=== PATIENT | male | born 1950 | race Caucasian/White ===

== ENCOUNTER → 2020-05-17 08:13 | Outpatient (BNVA) | payer OTHER, SELFPAY | PROVIDERS: PCP Family Medicine; Visit Provider Student in an Organized Health Care Education/Training Program | DX: M70.21 Olecranon bursitis, right elbow (principal) | CPT/HCPCS: 99212 ==

== ENCOUNTER 2021-05-23 20:50 | Inpatient (IN) | payer OTHER, SELFPAY ==
--- NOTE | 2021-05-23 21:37 | PC.NURSE ---
Pt is a 71 year old male who presents to S1 from [facility] ED at approx 2120 who is a section 12b. Pt is covid - Utox- Pt is irritable and did not want to talk with staff. Pt was able to walk independently to his bed and lay down upon arrival. Pt is diagnosed with schizoaffective disorder. Pt integumentary system is fragile, with no open areas. Pt had a medication restraint at [facility] approx on 05/18/21. Pt is refusing to engage with staff at the moment. Pt is guarded. Pt has a psychiatrist for outpt services. Per chart review, pt contacted himself explaining that the was supposed to see Judge Padron but things had went sideways. Pt reports mood as fine. Pt has limited impulse, insight, judgment. Per [facility] documentation pt has hx of attempting to burn off a tattoo during one of his episodes. Pt has a hx of substance use-cocaine and THC. Provider called for orders and notified of admission. Start treatment plan and monitor for safety.
[2021-05-23] MEDS: hydrOXYzine HCL 25 MG TABLET PO (23:13)
[2021-05-24 07:47] LABS: Estimated Average Glucose 97 mg/dL
[2021-05-24 07:50] LABS: Cholesterol 181 mg/dL; HDL Cholesterol 35 mg/dL; LDL Cholesterol Calculated 128 mg/dl; Magnesium 2.1 mg/dL (1.6-2.6); Triglycerides 93 mg/dL
[2021-05-24 08:00] VITALS: BP 132/72; PULSE 112; RESP 16; TEMP 36.6; O2SAT 97
[2021-05-24 08:11] LABS: Free T4 (Free Thyroxine) 1.09 ng/dL (0.71-1.85); Thyroid Stimulating Hormone 0.99 uIU/mL (0.32-4.0)
--- NOTE | 2021-05-24 08:45 | P.CONHOSP_ITS ---
History of Present Illness Data of Consult Service Date: 05/24/21 Primary Care Provider: Jennifer Olivo MD HPI 71 year old man with history of schizophrenia transferred from [facility] admitted to [facility] for behavioral health. At this time his vital signs are stable. No acute complaints at this time. Review of Systems Verdana 4l Review of Systems: Verdana 4d Verdana 4d Denies any recent fever chills or decrease in appetite respiratory denies any shortness of breath coverage production cardiovascular denies chest pain gastrointestinal denies any dysphagia abdominal pain nausea vomiting or diarrhea genitourinarygenitourinary denies any dysuria frequency or hematuria musculoskeletal denies any joint pain or swelling neuropsych denies any weakness or seizures all other systems reviewed are negative [facility] Medical History (Updated 05/24/21 @ 14:57 by Taurus Estevez MD) Schizophrenia Social History (Updated 05/17/20 @ 08:32 by Amauri Crowell LPN) Household Members: Unknown / Unable to assess Household Members Other:: Patient refused to answer. Housing: Unknown / Unable to assess Do you presently have visiting nurse or other home services: No Unable to assess alcohol history related to: Refusing to respond Alcohol intake: never Patient Tobacco Use Status: Refuse Tobacco use screen Cigarettes Per Day: 10 Use of substances other than those prescribed or required for medical reasons: Refusing to respond Currently Displaying Signs/Symptoms of Drug Intoxication Withdrawal: No Advance Directives: No Advance Directives Information Provided: No Advance Directives on File: No Do you have thoughts of harming others: None Do you have a plan to hurt others: No Plan Recently lost weight without trying: Unsure Eating poorly because of decreased appetite: No Nutrition Risks: No Nutritional Risk Meds Allergies Allergy/AdvReac Type Severity Reaction Status Date / Time No Known Allergies Allergy Verified 05/17/20 08:28 Active Medications: Current Medications Acetaminophen (Acetaminophen 325 Mg Tablet) 650 mg PO Q6H PRN PRN Reason: Headache/Pain Mild Scale (1-3) Al Hydroxide/Mg Hydroxide (Magnesium Hydrox/Alum Hydrox 30 Ml Oral.Susp) 30 ml PO Q6H PRN PRN Reason: Heartburn/Nausea Albuterol Sulfate (Albuterol Sulfate 90 Mcg 8 Gm Inhaler) 2 puff INHALE Q6H PRN PRN Reason: breathing Aspirin (Aspirin Enteric Coated 81 Mg Tablet.Dr) 81 mg PO DAILY [place] Benztropine Mesylate (Benztropine Mesylate 1 Mg Tablet) 1 mg PO BID [facility] Cyanocobalamin (Cyanocobalamin (Vitamin B-12) 1,000 Mcg Tablet) 1,000 mcg PO DAILY [facility] Divalproex Sodium (Divalproex Sodium Er 500 Mg Tab.Er.24h) 1,500 mg PO DAILY [facility] Folic Acid (Folic Acid 1 Mg Tablet) 1 mg PO DAILY [facility] Haloperidol (Haloperidol 5 Mg Tablet) 7.5 mg PO BEDTIME [facility] Hydroxyzine HCl (Hydroxyzine Hcl 25 Mg Tablet) 25 mg PO DAILY PRN PRN Reason: Anxiety Last Admin: 05/23/21 23:13 Dose: 25 mg Documented by: Lactic Acid (Ammonium Lactate 12 % Lotion 226 Gm Bottle) 1 appl TOPICAL BID [facility] Magnesium Hydroxide (Milk Of Magnesia 30 Ml Oral.Susp) 30 ml PO DAILY PRN PRN Reason: Constipation Melatonin (Melatonin 3 Mg Tablet) 9 mg PO BEDTIME [place] Trazodone HCl (Trazodone Hcl 25 Mg Halftab) 25 mg PO DAILY [facility] Vitamin D (Cholecalciferol (Vitamin D3) 25 Mcg Tablet) 50 mcg PO DAILY [facility] Home Medications Medication Instructions Recorded Confirmed Last Taken Type albuterol sulfate 2 puff 05/17/20 05/23/21 Unknown History 90 mcg/actuation INHALATION Q6H PRN aerosol inhaler ammonium lactate 1 appl TOPICAL 05/17/20 05/23/21 Unknown History 12 % lotion BID aspirin 81 mg 81 mg PO DAILY 05/17/20 05/23/21 Unknown History tablet,delayed release (Enteric Coated Aspirin) benztropine 1 mg 1 mg PO BID 05/17/20 05/23/21 Unknown History tablet divalproex 500 mg 500 mg PO TID 05/17/20 05/23/21 Unknown History tablet,delayed release haloperidol 5 mg 5 mg PO BEDTIME 05/17/20 05/23/21 Unknown History tablet trazodone 50 mg 25 mg PO DAILY 05/17/20 05/23/21 Unknown History tablet Physical Exam Verdana 4l Vital Signs and Narrative: Verdana 4d Verdana 4d Appearing in no acute distress head is normocephalic atraumatic eyes pupils are PERRLA sclera is anicteric mouth throat mucous membranes are intact and moist neck is supple no lymphadenopathy, no JVD noted lung sounds are clear to auscultationauscultation heart regular rate rhythm, clear S1, S2 positive bowel sounds, abdomen is soft, nontender neuro patient is alert x3, no focal deficits Cranial nerves 1-12 grossly intact without focal deficits Results Labs Labs: Laboratory Results - last 24 hr 05/24/21 05/24/21 07:15 07:15 Estimat Average Glucose 97 Hemoglobin A1c % 5.0 Magnesium 2.1 Triglycerides 93 Cholesterol 181 LDL Cholesterol, Calc 128 HDL Cholesterol 35 TSH 0.99 Free T4 1.09 Assessment and Plan (1) Schizophrenia: Status: Acute 71-year-old man admitted to geriatric psych for behavior Health. It does not appear that he has any acute or chronic medical problems other than mental health. Schizophrenia Management as per psychiatric team No noted acute medical problems, anything should arise please contact medical team.
[2021-05-24] MEDS: Aspirin Enteric Coated 81 MG TABLET.DR PO (10:25)
[2021-05-24] MEDS: Benztropine Mesylate 1 MG TABLET PO ×2 (10:25→20:16)
[2021-05-24] MEDS: Cholecalciferol (Vitamin D3) 25 MCG TABLET 50 MCG PO (10:25)
[2021-05-24] MEDS: Cyanocobalamin (Vitamin B-12) 1,000 MCG TABLET 1000 MCG PO (10:25)
[2021-05-24] MEDS: Divalproex Sodium ER 500 MG TAB.ER.24H 1500 MG PO (10:26)
[2021-05-24] MEDS: traZODone HCL 25 MG HALFTAB PO (10:27)
[2021-05-24] MEDS: Folic Acid 1 MG TABLET PO (10:27)
--- NOTE | 2021-05-24 13:06 | PC.NURSE ---
Patient refused to cooperate for the admission process. He wants to go back where he was before.
--- NOTE | 2021-05-24 14:43 | HO.PSYADMNOT ---
HPI Date of Service: 05/24/21 Chief Complaint: schizoaffective disorder,cannabis use,stimulant Sources of Information: patient interviewed, chart reviewed and crisis/core team assessment reviewed HPI Subjective Notes: Section 12B Medical Problems Affecting Mental Status: No Narrative: 71-year-old male transferred from [facility] in context of paranoia, delusions he should be on the [employer] show. There was also mention of suicidal ideation. Irritable and paranoid since admission. Declined to engage with admission process or complete paperwork. Admitted on Section 12 B. Today patient reports wanting discharge. Is illogical during interview at times and was talking about the teenage mutant wili turtles. No evidence of depression. Denies SI. Denies HI. Does appear internally preoccupied. Reports that his sister had a reaction and taunted him into coming to the hospital. Could not explain why he drove himself to the hospital but blames his sister. Upon trying the interview more are asked about background history, became irritable and guarded and was talking about being tested to many times. Regarding treatment, reports his psychiatrist is Dr. Audra blanc in [facility]. Regarding medications, reports that he gets what he needs but did not want to elaborate. Reports medications are being ordered here. When asking about family and supports. Was referring to [facility], editorial writer believes stating there [place] and that he could get dental work done there. Then reports that he tried to defend his rights to have dental work which led to letters been written. This was largely illogical and difficult to follow. When asked about his , became irritable and used obscenities to describe her. Stated he had 1 daughter and then stated he was unsure if he had grand children and she might be in [place]. Denies having any substance issues. Did endorse smoking cigarettes, but denied any cravings and declined nicotine replacement therapy. Past Psychiatric History: see above. Very difficult to get clear history, given patient's irritability, level of paranoia and illogical. there is reference to cocaine misuse in the past and history of attempting to burn off his tattoo in the past. Medical Evaluation Reviewed: Yes See hospitalist evaluation regarding medical needs etc. [facility] Medical History (Updated 05/24/21 @ 14:57 by Taurus Estevez MD) Schizophrenia Social History: see above. Very difficult to get clear history. Reports that he lives with the sister. Unclear if he had been at the [facility] or get services there. Unclear level of supports etc. Substance History: As per transfer paperwork history of cocaine Misuse. Diagnostics Vital Signs (24Hr): Vital Signs - 24 hr 05/24/21 08:00 Temperature 97.8 F Pulse Rate 112 H Respiratory Rate 16 Blood Pressure 132/72 Pulse Oximetry 97 Labs Labs: Laboratory Results - last 48 hr 05/24/21 05/24/21 07:15 07:15 Estimat Average Glucose 97 Hemoglobin A1c % 5.0 Magnesium 2.1 Triglycerides 93 Cholesterol 181 LDL Cholesterol, Calc 128 HDL Cholesterol 35 TSH 0.99 Free T4 1.09 Meds/Allergies Meds Home Medications Acetaminophen (Acetaminophen 325 Mg Tablet) 650 mg PO Q6H PRN PRN Reason: Headache/Pain Mild Scale (1-3) Al Hydroxide/Mg Hydroxide (Magnesium Hydrox/Alum Hydrox 30 Ml Oral.Susp) 30 ml PO Q6H PRN PRN Reason: Heartburn/Nausea Albuterol Sulfate (Albuterol Sulfate 90 Mcg 8 Gm Inhaler) 2 puff INHALE Q6H PRN PRN Reason: breathing Aspirin (Aspirin Enteric Coated 81 Mg Tablet.) 81 mg PO DAILY [facility] Last Admin: 05/24/21 10:25 Dose: 81 mg Documented by: Benztropine Mesylate (Benztropine Mesylate 1 Mg Tablet) 1 mg PO BID [facility] Last Admin: 05/24/21 10:25 Dose: 1 mg Documented by: Cyanocobalamin (Cyanocobalamin (Vitamin B-12) 1,000 Mcg Tablet) 1,000 mcg PO DAILY [facility] Last Admin: 05/24/21 10:25 Dose: 1,000 mcg Documented by: Divalproex Sodium (Divalproex Sodium Er 500 Mg Tab.Er.24h) 1,500 mg PO DAILY [facility] Last Admin: 05/24/21 10:26 Dose: 1,500 mg Documented by: Folic Acid (Folic Acid 1 Mg Tablet) 1 mg PO DAILY [facility] Last Admin: 05/24/21 10:27 Dose: 1 mg Documented by: Haloperidol (Haloperidol 5 Mg Tablet) 7.5 mg PO BEDTIME [facility] Hydroxyzine HCl (Hydroxyzine Hcl 25 Mg Tablet) 25 mg PO DAILY PRN PRN Reason: Anxiety Last Admin: 05/23/21 23:13 Dose: 25 mg Documented by: Lactic Acid (Ammonium Lactate 12 % Lotion 226 Gm Bottle) 1 appl TOPICAL BID [facility] Last Admin: 05/24/21 10:27 Dose: Not Given Documented by: Magnesium Hydroxide (Milk Of Magnesia 30 Ml Oral.Susp) 30 ml PO DAILY PRN PRN Reason: Constipation Melatonin (Melatonin 3 Mg Tablet) 9 mg PO BEDTIME [facility] Trazodone HCl (Trazodone Hcl 25 Mg Halftab) 25 mg PO DAILY [facility] Last Admin: 05/24/21 10:27 Dose: 25 mg Documented by: Vitamin D (Cholecalciferol (Vitamin D3) 25 Mcg Tablet) 50 mcg PO DAILY [facility] Last Admin: 05/24/21 10:25 Dose: 50 mcg Documented by: Allergies Allergies Allergy/AdvReac Type Severity Reaction Status Date / Time No Known Allergies Allergy Verified 05/17/20 08:28 Mental Status Exam Mental Status Exam Narrative: Seen in day room. Casually dressed. Hygiene okay. no overt cognitive issues noted. Aware he was at [facility] and came to [place] yesterday. Internally preoccupied. Guarded. Irritable. Is logical with loosening of thought form. denied depression. Denied current SI. Denied HI. Does appear paranoid. Insight and judgment limited Assessment & Plan Assessment & Plan (1) Schizophrenia: Status: Acute Code(s): F20.9 - Schizophrenia, unspecified Assessment and Plan: Presents with paranoia, thought disorder and internal preoccupation consistent with schizophrenia. There is reference to SI, but no evidence of same currently. Limited engagement with treatment planning with irritability and being quite guarded. Unclear regarding recent treatments and adherence with medications. Will continue with current medication plan as per transfer records [facility]: Depakote 1500, Haldol 7.5, Cogentin and trazodone. Patient educated on: other ( Attempt to discuss treatment planning and rationale for same.) Informed Consent: further education needed Reason for continued inpatient stay Substantial Risk for: harm to self and rapid decompensation
[2021-05-24 18:00] VITALS: BP 134/66; PULSE 89; RESP 20; TEMP 36.4; O2SAT 99
[2021-05-24] MEDS: Melatonin 3 MG TABLET 9 MG PO (20:16)
[2021-05-24] MEDS: HaloperidoL 5 MG TABLET 7.5 MG PO (20:17)
[2021-05-24] MEDS: Ammonium Lactate 12 % Lotion 226 GM BOTTLE 1 APPL TOPICAL (23:16)
[2021-05-25 02:44] VITALS: BMI 25.7
[2021-05-25 08:00] VITALS: BP 114/70; PULSE 89; TEMP 36; O2SAT 100
[2021-05-25] MEDS: Folic Acid 1 MG TABLET PO (08:17)
[2021-05-25] MEDS: Divalproex Sodium ER 500 MG TAB.ER.24H 1500 MG PO (08:17)
[2021-05-25] MEDS: Benztropine Mesylate 1 MG TABLET PO ×2 (08:17→21:17)
[2021-05-25] MEDS: traZODone HCL 25 MG HALFTAB PO (08:17)
[2021-05-25] MEDS: Cyanocobalamin (Vitamin B-12) 1,000 MCG TABLET 1000 MCG PO (08:17)
[2021-05-25] MEDS: Aspirin Enteric Coated 81 MG TABLET.DR PO (08:17)
[2021-05-25] MEDS: Cholecalciferol (Vitamin D3) 25 MCG TABLET 50 MCG PO (08:17)
[2021-05-25 08:19] LABS: Valproate 51.8 mcg/mL (50.0-100.0)
--- NOTE | 2021-05-25 10:46 | P.PNPSI_ITS ---
Subjective Subjective Date of Service: 05/25/21 Reason For Visit: schizoaffective disorder Subjective Notes: Section 12B Interim History: Continues to remain irritable. Did however complete some admission paperwork yesterday. Still reports not wanting to be in the hospital and willing discharge. Unable to clearly articulate admission circumstances again today. Reported that he was feeling manic, but unable to describe same. Frustrated regarding sister. Frustrated about being in the hospital using obscenities when talking about this. Sleep has been okay. Denied medication concerns. Is medication adherent. Does remain intrusive. Also appears inter nedra preoccupied at times Medication Compliance: Yes Side effects from medications: No Attending Groups: Intermittent Review of Systems Acute medical concerns: No Review of Systems Review of Systems unremarkable Mental Status Exam Mental Status Exam Narrative: Seen in day room. Casually dressed. Hygiene okay. no overt cognitive issues noted. Internally preoccupied. Guarded. Irritable. Is logical with loosening of thought form. denied depression. Denied current SI. Denied HI. Does appear paranoid. Insight and judgment limited Diagnostics Vital Signs (24Hr): Vital Signs - 24 hr 05/24/21 18:00 05/25/21 08:00 Temperature 97.6 F 96.8 F Pulse Rate 89 89 Respiratory Rate 20 Blood Pressure 134/66 114/70 Pulse Oximetry 99 100 BMI result Body Mass Index 25.7 Labs Labs: Laboratory Results - last 48 hr 05/24/21 05/24/21 05/25/21 07:15 07:15 07:40 Estimat Average Glucose 97 Hemoglobin A1c % 5.0 Magnesium 2.1 Triglycerides 93 Cholesterol 181 LDL Cholesterol, Calc 128 HDL Cholesterol 35 TSH 0.99 Free T4 1.09 Valproic Acid 51.8 Medications Medications Current Medications Acetaminophen (Acetaminophen 325 Mg Tablet) 650 mg PO Q6H PRN PRN Reason: Headache/Pain Mild Scale (1-3) Al Hydroxide/Mg Hydroxide (Magnesium Hydrox/Alum Hydrox 30 Ml Oral.Susp) 30 ml PO Q6H PRN PRN Reason: Heartburn/Nausea Albuterol Sulfate (Albuterol Sulfate 90 Mcg 8 Gm Inhaler) 2 puff INHALE Q6H PRN PRN Reason: breathing Aspirin (Aspirin Enteric Coated 81 Mg Tablet.) 81 mg PO DAILY [place] Last Admin: 05/25/21 08:17 Dose: 81 mg Documented by: Benztropine Mesylate (Benztropine Mesylate 1 Mg Tablet) 1 mg PO BID [facility] Last Admin: 05/25/21 08:17 Dose: 1 mg Documented by: Cyanocobalamin (Cyanocobalamin (Vitamin B-12) 1,000 Mcg Tablet) 1,000 mcg PO DAILY [facility] Last Admin: 05/25/21 08:17 Dose: 1,000 mcg Documented by: Divalproex Sodium (Divalproex Sodium Er 500 Mg Tab.Er.24h) 1,500 mg PO DAILY [facility] Last Admin: 05/25/21 08:17 Dose: 1,500 mg Documented by: Folic Acid (Folic Acid 1 Mg Tablet) 1 mg PO DAILY [facility] Last Admin: 05/25/21 08:17 Dose: 1 mg Documented by: Haloperidol (Haloperidol 5 Mg Tablet) 7.5 mg PO BEDTIME [facility] Last Admin: 05/24/21 20:17 Dose: 7.5 mg Documented by: Hydroxyzine HCl (Hydroxyzine Hcl 25 Mg Tablet) 25 mg PO DAILY PRN PRN Reason: Anxiety Last Admin: 05/23/21 23:13 Dose: 25 mg Documented by: Lactic Acid (Ammonium Lactate 12 % Lotion 226 Gm Bottle) 1 appl TOPICAL BID [facility] Last Admin: 05/25/21 10:06 Dose: Not Given Documented by: Magnesium Hydroxide (Milk Of Magnesia 30 Ml Oral.Susp) 30 ml PO DAILY PRN PRN Reason: Constipation Melatonin (Melatonin 3 Mg Tablet) 9 mg PO BEDTIME [facility] Last Admin: 05/24/21 20:16 Dose: 9 mg Documented by: Trazodone HCl (Trazodone Hcl 25 Mg Halftab) 25 mg PO DAILY [facility] Last Admin: 05/25/21 08:17 Dose: 25 mg Documented by: Vitamin D (Cholecalciferol (Vitamin D3) 25 Mcg Tablet) 50 mcg PO DAILY [facility] Last Admin: 05/25/21 08:17 Dose: 50 mcg Documented by: Allergies Allergies Allergy/AdvReac Type Severity Reaction Status Date / Time No Known Allergies Allergy Verified 05/17/20 08:28 Assessment & Plan Assessment & Plan (1) Schizophrenia: Status: Acute Code(s): F20.9 - Schizophrenia, unspecified Assessment and Plan: ?Presents with paranoia, thought disorder and internal preoccupation consistent with schizophrenia.? There is reference to SI, but no evidence of same currently.? Limited engagement with treatment planning with irritability and being quite guarded. Unclear regarding recent treatments and adherence with medications.? Will continue with current medication plan as per transfer records [facility]: ? Depakote 1500, Haldol 7.5, Cogentin and trazodone. Assessment and Plan: 71-year-old man admitted to geriatric psych for behavior Health. It does not appear that he has any acute or chronic medical problems other than mental health. Schizophrenia Management as per psychiatric team No noted acute medical problems, anything should arise please contact medical team. I spent minutes with the patient and/or on the patient floor today, greater than?50% of which was spent counseling/coordinating care. Reason for contiued inpatient stay Substantial Risk for: inability to function and rapid decompensation
[2021-05-25] MEDS: Ammonium Lactate 12 % Lotion 226 GM BOTTLE 1 APPL TOPICAL (21:17)
[2021-05-25] MEDS: HaloperidoL 5 MG TABLET 7.5 MG PO (21:18)
[2021-05-25] MEDS: Melatonin 3 MG TABLET 9 MG PO (21:18)
[2021-05-25 22:11] VITALS: BP 125/63; PULSE 83; RESP 18; TEMP 37.2; O2SAT 100
[2021-05-25] MEDS: hydrOXYzine HCL 25 MG TABLET PO (23:43)
[2021-05-26 06:00] VITALS: BP 128/65; PULSE 83; RESP 14; TEMP 36.4; O2SAT 99
[2021-05-26] MEDS: Cholecalciferol (Vitamin D3) 25 MCG TABLET 50 MCG PO (08:32)
[2021-05-26] MEDS: Folic Acid 1 MG TABLET PO (08:33)
[2021-05-26] MEDS: Aspirin Enteric Coated 81 MG TABLET.DR PO (08:33)
[2021-05-26] MEDS: Divalproex Sodium ER 500 MG TAB.ER.24H 1500 MG PO (08:33)
[2021-05-26] MEDS: traZODone HCL 25 MG HALFTAB PO (08:33)
[2021-05-26] MEDS: Benztropine Mesylate 1 MG TABLET PO ×2 (08:33→21:02)
[2021-05-26] MEDS: Cyanocobalamin (Vitamin B-12) 1,000 MCG TABLET 1000 MCG PO (08:33)
[2021-05-26] MEDS: Ammonium Lactate 12 % Lotion 226 GM BOTTLE 1 APPL TOPICAL ×2 (09:14→16:10)
[2021-05-26 10:26] LABS: Folate 15.9 ng/mL (> or = 4.0); Vitamin B12 967 pg/mL (200-900)
--- NOTE | 2021-05-26 15:09 | P.PNPSI_ITS ---
Subjective Subjective Date of Service: 05/26/21 Reason For Visit: schizoaffective disorder Subjective Notes: Conditional Voluntary Interim History: The nursing staff reported that the patient had a poor night sleep, he was irritable at times with poor appetite. On interview the patient was pleasant and cooperative he admitted poor sleep and he stated that before olanzapine used to work for him. He sign a conditional voluntary even though that he was very paranoid with staff Mental Status Exam Mental Status Exam Patient Appearance: Well Grooomed Patient Orientation: Person Level of Consciousness: Awake Patient Behavior: Cooperative Mood Description: Depressed Affect Description: Constricted Ability to Follow Directions: Good Speech Pattern: Clear Hallucinations: None Delusions: Not Present Thought Process: Linear Thought Content: positive for Linear and positive for Poverty of Content Judgement: Fair Diagnostics Vital Signs (24Hr): Vital Signs - 24 hr 05/25/21 22:11 05/26/21 06:00 Temperature 98.9 F 97.5 F Pulse Rate 83 83 Respiratory Rate 18 14 Blood Pressure 125/63 128/65 Pulse Oximetry 100 99 BMI result Body Mass Index 25.7 Labs Labs: Laboratory Results - last 48 hr 05/24/21 05/25/21 07:15 07:40 Vitamin B12 967 H Folate 15.9 Valproic Acid 51.8 Medications Medications Current Medications Acetaminophen (Acetaminophen 325 Mg Tablet) 650 mg PO Q6H PRN PRN Reason: Headache/Pain Mild Scale (1-3) Al Hydroxide/Mg Hydroxide (Magnesium Hydrox/Alum Hydrox 30 Ml Oral.Susp) 30 ml PO Q6H PRN PRN Reason: Heartburn/Nausea Albuterol Sulfate (Albuterol Sulfate 90 Mcg 8 Gm Inhaler) 2 puff INHALE Q6H PRN PRN Reason: breathing Aspirin (Aspirin Enteric Coated 81 Mg Tablet.) 81 mg PO DAILY [facility] Last Admin: 05/26/21 08:33 Dose: 81 mg Documented by: Benztropine Mesylate (Benztropine Mesylate 1 Mg Tablet) 1 mg PO BID [facility] Last Admin: 05/26/21 08:33 Dose: 1 mg Documented by: Cyanocobalamin (Cyanocobalamin (Vitamin B-12) 1,000 Mcg Tablet) 1,000 mcg PO DAILY [facility] Last Admin: 05/26/21 08:33 Dose: 1,000 mcg Documented by: Divalproex Sodium (Divalproex Sodium Er 500 Mg Tab.Er.24h) 1,500 mg PO DAILY [facility] Last Admin: 05/26/21 08:33 Dose: 1,500 mg Documented by: Folic Acid (Folic Acid 1 Mg Tablet) 1 mg PO DAILY [facility] Last Admin: 05/26/21 08:33 Dose: 1 mg Documented by: Haloperidol (Haloperidol 5 Mg Tablet) 7.5 mg PO BEDTIME [facility] Last Admin: 05/25/21 21:18 Dose: 7.5 mg Documented by: Hydroxyzine HCl (Hydroxyzine Hcl 25 Mg Tablet) 25 mg PO DAILY PRN PRN Reason: Anxiety Last Admin: 05/25/21 23:43 Dose: 25 mg Documented by: Lactic Acid (Ammonium Lactate 12 % Lotion 226 Gm Bottle) 1 appl TOPICAL BID [facility] Last Admin: 05/26/21 09:14 Dose: 1 appl Documented by: Magnesium Hydroxide (Milk Of Magnesia 30 Ml Oral.Susp) 30 ml PO DAILY PRN PRN Reason: Constipation Melatonin (Melatonin 3 Mg Tablet) 9 mg PO BEDTIME [facility] Last Admin: 05/25/21 21:18 Dose: 9 mg Documented by: Trazodone HCl (Trazodone Hcl 25 Mg Halftab) 25 mg PO DAILY [facility] Last Admin: 05/26/21 08:33 Dose: 25 mg Documented by: Vitamin D (Cholecalciferol (Vitamin D3) 25 Mcg Tablet) 50 mcg PO DAILY [facility] Last Admin: 05/26/21 08:32 Dose: 50 mcg Documented by: Allergies Allergies Allergy/AdvReac Type Severity Reaction Status Date / Time No Known Allergies Allergy Verified 05/17/20 08:28 Assessment & Plan Assessment & Plan (1) Schizophrenia: Status: Acute Code(s): F20.9 - Schizophrenia, unspecified Assessment and Plan: 71-year-old man admitted to geriatric psych for behavior Health. the patient usually has his psychiatric care at the [facility] and apparently he was grossly psychotic 1 day after his last shot of Haldol Decanoate. He carries a diagnosis of Schizophrenia Management as per psychiatric team plan 1. Continue same medications. 2. Gather collateral information. 3. Start Zyprexa 5 mg p.o. q.h.s. I spent minutes with the patient and/or on the patient floor today, greater than?50% of which was spent counseling/coordinating care. Reason for contiued inpatient stay Substantial Risk for: harm to self, inability to function, rapid decompensation and med/psych decompensation
[2021-05-26 18:00] VITALS: BP 140/63; PULSE 91; TEMP 36.9; O2SAT 98
[2021-05-26] MEDS: HaloperidoL 5 MG TABLET 7.5 MG PO (21:02)
[2021-05-26] MEDS: OLANZapine 5 MG TABLET PO (21:03)
[2021-05-26] MEDS: Melatonin 3 MG TABLET 9 MG PO (21:03)
[2021-05-26] MEDS: Milk of Magnesia 30 ML ORAL.SUSP PO (21:13)
[2021-05-27 06:00] VITALS: BP 132/64; PULSE 95; RESP 20; TEMP 36.2; O2SAT 97
[2021-05-27] MEDS: Benztropine Mesylate 1 MG TABLET PO ×2 (08:15→20:33)
[2021-05-27] MEDS: Cyanocobalamin (Vitamin B-12) 1,000 MCG TABLET 1000 MCG PO (08:15)
[2021-05-27] MEDS: Aspirin Enteric Coated 81 MG TABLET.DR PO (08:15)
[2021-05-27] MEDS: Divalproex Sodium ER 500 MG TAB.ER.24H 1500 MG PO (08:16)
[2021-05-27] MEDS: Folic Acid 1 MG TABLET PO (08:16)
[2021-05-27] MEDS: Cholecalciferol (Vitamin D3) 25 MCG TABLET 50 MCG PO (08:16)
[2021-05-27] MEDS: traZODone HCL 25 MG HALFTAB PO (08:16)
[2021-05-27] MEDS: Ammonium Lactate 12 % Lotion 226 GM BOTTLE 1 APPL TOPICAL ×2 (09:29→20:42)
--- NOTE | 2021-05-27 16:50 | P.PNPSI_ITS ---
Subjective Subjective Date of Service: 05/27/21 Reason For Visit: schizoaffective disorder Subjective Notes: Conditional Voluntary Interim History: The nursing staff reported that he slept 6 hours, he signed CV. The social worker aide reported that her sister found out that he was able to ask for help since he was more psychotic. Yesterday, the staff reported that he has pleasant and cooperative, internally preoccupied at times. ON interview, he reported that he was oversedated with Zyprexa 5 mg po qhs. Mental Status Exam Mental Status Exam Patient Appearance: Well Grooomed and Unkempt Patient Orientation: Person Level of Consciousness: Awake Patient Behavior: Cooperative Mood Description: Suspicious and Withdrawn Affect Description: Constricted Ability to Follow Directions: Good Speech Pattern: Clear Hallucinations: None Delusions: Paranoid Ideation Thought Process: Linear Thought Content: positive for Tobias and positive for Poverty of Content Judgement: Fair Diagnostics Vital Signs (24Hr): Vital Signs - 24 hr 05/26/21 18:00 05/27/21 06:00 Temperature 98.4 F 97.1 F Pulse Rate 91 95 Respiratory Rate 20 Blood Pressure 140/63 H 132/64 Pulse Oximetry 98 97 BMI result Body Mass Index 25.7 Labs Labs: Laboratory Results - last 48 hr 05/24/21 07:15 Vitamin B12 967 H Folate 15.9 Medications Medications Current Medications Acetaminophen (Acetaminophen 325 Mg Tablet) 650 mg PO Q6H PRN PRN Reason: Headache/Pain Mild Scale (1-3) Al Hydroxide/Mg Hydroxide (Magnesium Hydrox/Alum Hydrox 30 Ml Oral.Susp) 30 ml PO Q6H PRN PRN Reason: Heartburn/Nausea Albuterol Sulfate (Albuterol Sulfate 90 Mcg 8 Gm Inhaler) 2 puff INHALE Q6H PRN PRN Reason: breathing Aspirin (Aspirin Enteric Coated 81 Mg Tablet.) 81 mg PO DAILY [facility] Last Admin: 05/27/21 08:15 Dose: 81 mg Documented by: Benztropine Mesylate (Benztropine Mesylate 1 Mg Tablet) 1 mg PO BID [facility] Last Admin: 05/27/21 08:15 Dose: 1 mg Documented by: Cyanocobalamin (Cyanocobalamin (Vitamin B-12) 1,000 Mcg Tablet) 1,000 mcg PO DAILY [facility] Last Admin: 05/27/21 08:15 Dose: 1,000 mcg Documented by: Divalproex Sodium (Divalproex Sodium Er 500 Mg Tab.Er.24h) 1,500 mg PO DAILY [facility] Last Admin: 05/27/21 08:16 Dose: 1,500 mg Documented by: Folic Acid (Folic Acid 1 Mg Tablet) 1 mg PO DAILY [facility] Last Admin: 05/27/21 08:16 Dose: 1 mg Documented by: Haloperidol (Haloperidol 5 Mg Tablet) 7.5 mg PO BEDTIME [facility] Last Admin: 05/26/21 21:02 Dose: 7.5 mg Documented by: Hydroxyzine HCl (Hydroxyzine Hcl 25 Mg Tablet) 25 mg PO DAILY PRN PRN Reason: Anxiety Last Admin: 05/25/21 23:43 Dose: 25 mg Documented by: Lactic Acid (Ammonium Lactate 12 % Lotion 226 Gm Bottle) 1 appl TOPICAL BID [facility] Last Admin: 05/27/21 09:29 Dose: 1 appl Documented by: Magnesium Hydroxide (Milk Of Magnesia 30 Ml Oral.Susp) 30 ml PO DAILY PRN PRN Reason: Constipation Last Admin: 05/26/21 21:13 Dose: 30 ml Documented by: Melatonin (Melatonin 3 Mg Tablet) 9 mg PO BEDTIME [facility] Last Admin: 05/26/21 21:03 Dose: 9 mg Documented by: Olanzapine (Olanzapine 5 Mg Tablet) 5 mg PO BEDTIME [facility] Last Admin: 05/26/21 21:03 Dose: 5 mg Documented by: Trazodone HCl (Trazodone Hcl 25 Mg Halftab) 25 mg PO DAILY [facility] Last Admin: 05/27/21 08:16 Dose: 25 mg Documented by: Vitamin D (Cholecalciferol (Vitamin D3) 25 Mcg Tablet) 50 mcg PO DAILY [facility] Last Admin: 05/27/21 08:16 Dose: 50 mcg Documented by: Allergies Allergies Allergy/AdvReac Type Severity Reaction Status Date / Time No Known Allergies Allergy Verified 05/17/20 08:28 Assessment & Plan Assessment & Plan (1) Schizophrenia: Status: Acute Code(s): F20.9 - Schizophrenia, unspecified Assessment and Plan: 71-year-old man admitted to geriatric psych for behavior Health. It does not appear that he has any acute or chronic medical problems other than mental health. Plan: [facility]. [facility] next H[facility]ol dec is every 21 days, next shot on 2/4 Lower Zyprexa up to 2.5 mg po qhs I spent minutes with the patient and/or on the patient floor today, greater than?50% of which was spent counseling/coordinating care. Reason for contiued inpatient stay Substantial Risk for: inability to function, rapid decompensation and med/psych decompensation
[2021-05-27 20:25] VITALS: BP 133/60; PULSE 84; RESP 18; TEMP 37; O2SAT 99
[2021-05-27] MEDS: HaloperidoL 5 MG TABLET 7.5 MG PO (20:33)
[2021-05-27] MEDS: OLANZapine 2.5 MG TABLET PO (20:33)
[2021-05-27] MEDS: Melatonin 3 MG TABLET 9 MG PO (20:33)
[2021-05-28 08:00] VITALS: BP 128/75; PULSE 74; RESP 18; TEMP 36.6; O2SAT 99
[2021-05-28] MEDS: Aspirin Enteric Coated 81 MG TABLET.DR PO (08:37)
[2021-05-28] MEDS: Cholecalciferol (Vitamin D3) 25 MCG TABLET 50 MCG PO (08:37)
[2021-05-28] MEDS: Divalproex Sodium ER 500 MG TAB.ER.24H 1500 MG PO (08:37)
[2021-05-28] MEDS: Benztropine Mesylate 1 MG TABLET PO ×2 (08:37→21:35)
[2021-05-28] MEDS: traZODone HCL 25 MG HALFTAB PO (08:37)
[2021-05-28] MEDS: Folic Acid 1 MG TABLET PO (08:37)
[2021-05-28] MEDS: Cyanocobalamin (Vitamin B-12) 1,000 MCG TABLET 1000 MCG PO (08:38)
[2021-05-28] MEDS: Ammonium Lactate 12 % Lotion 226 GM BOTTLE 1 APPL TOPICAL (11:06)
--- NOTE | 2021-05-28 14:41 | P.PNPSI_ITS ---
Subjective Subjective Date of Service: 05/28/21 Reason For Visit: schizoaffective disorder Subjective Notes: Conditional Voluntary Interim History: The nursing staff reports that the patient is doing fairly well, he is having his meals in the common area and he interacts with staff and peers assertively. Last night he slept well, his LEs over-sedated with Zyprexa 2.5 mg p.o. q.h.s.. On interview, the patient denies psychotic symptoms, he complains of residual anxiety but he feels much better than yesterday Mental Status Exam Mental Status Exam Patient Appearance: Well Grooomed Patient Orientation: Person Level of Consciousness: Awake Patient Behavior: Cooperative Mood Description: Constricted Affect Description: Constricted Ability to Follow Directions: Good Speech Pattern: Appropriate Hallucinations: None Delusions: Not Present Thought Process: Linear Thought Content: positive for Circumstantial and positive for Poverty of Content Judgement: Fair Diagnostics Vital Signs (24Hr): Vital Signs - 24 hr 05/27/21 20:25 05/28/21 08:00 Temperature 98.6 F 97.9 F Pulse Rate 84 74 Respiratory Rate 18 18 Blood Pressure 133/60 128/75 Pulse Oximetry 99 99 BMI result Verdana 4 Body Mass Index Verdana 4 25.7 Verdana 4 Verdana 4 Medications Medications Current Medications Acetaminophen (Acetaminophen 325 Mg Tablet) 650 mg PO Q6H PRN PRN Reason: Headache/Pain Mild Scale (1-3) Al Hydroxide/Mg Hydroxide (Magnesium Hydrox/Alum Hydrox 30 Ml Oral.Susp) 30 ml PO Q6H PRN PRN Reason: Heartburn/Nausea Albuterol Sulfate (Albuterol Sulfate 90 Mcg 8 Gm Inhaler) 2 puff INHALE Q6H PRN PRN Reason: breathing Aspirin (Aspirin Enteric Coated 81 Mg Tablet.) 81 mg PO DAILY [facility] Last Admin: 05/28/21 08:37 Dose: 81 mg Documented by: Benztropine Mesylate (Benztropine Mesylate 1 Mg Tablet) 1 mg PO BID [facility] Last Admin: 05/28/21 08:37 Dose: 1 mg Documented by: Cyanocobalamin (Cyanocobalamin (Vitamin B-12) 1,000 Mcg Tablet) 1,000 mcg PO DAILY [facility] Last Admin: 05/28/21 08:38 Dose: 1,000 mcg Documented by: Divalproex Sodium (Divalproex Sodium Er 500 Mg Tab.Er.24h) 1,500 mg PO DAILY [facility] Last Admin: 05/28/21 08:37 Dose: 1,500 mg Documented by: Folic Acid (Folic Acid 1 Mg Tablet) 1 mg PO DAILY [facility] Last Admin: 05/28/21 08:37 Dose: 1 mg Documented by: Haloperidol (Haloperidol 5 Mg Tablet) 7.5 mg PO BEDTIME [facility] Last Admin: 05/27/21 20:33 Dose: 7.5 mg Documented by: Hydroxyzine HCl (Hydroxyzine Hcl 25 Mg Tablet) 25 mg PO DAILY PRN PRN Reason: Anxiety Last Admin: 05/25/21 23:43 Dose: 25 mg Documented by: Lactic Acid (Ammonium Lactate 12 % Lotion 226 Gm Bottle) 1 appl TOPICAL BID [facility] Last Admin: 05/28/21 11:06 Dose: 1 appl Documented by: Magnesium Hydroxide (Milk Of Magnesia 30 Ml Oral.Susp) 30 ml PO DAILY PRN PRN Reason: Constipation Last Admin: 05/26/21 21:13 Dose: 30 ml Documented by: Melatonin (Melatonin 3 Mg Tablet) 9 mg PO BEDTIME [facility] Last Admin: 05/27/21 20:33 Dose: 9 mg Documented by: Olanzapine (Olanzapine 2.5 Mg Tablet) 2.5 mg PO BEDTIME [facility] Last Admin: 05/27/21 20:33 Dose: 2.5 mg Documented by: Trazodone HCl (Trazodone Hcl 25 Mg Halftab) 25 mg PO DAILY [facility] Last Admin: 05/28/21 08:37 Dose: 25 mg Documented by: Vitamin D (Cholecalciferol (Vitamin D3) 25 Mcg Tablet) 50 mcg PO DAILY [facility] Last Admin: 05/28/21 08:37 Dose: 50 mcg Documented by: Allergies Allergies Allergy/AdvReac Type Severity Reaction Status Date / Time No Known Allergies Allergy Verified 05/17/20 08:28 Assessment & Plan Assessment & Plan (1) Schizophrenia: Status: Acute Code(s): F20.9 - Schizophrenia, unspecified Plan 71-year-old man admitted to geriatric psych for behavior Health. It does not appear that he has any acute or chronic medical problems other than mental health. Plan: [facility]. [facility] next H[facility]ol dec is every 21 days, next shot on / Lower Zyprexa up to 2.5 mg po qhs Discharge for Wednesday possibly I spent minutes with the patient and/or on the patient floor today, greater than?50% of which was spent counseling/coordinating care. Reason for contiued inpatient stay Substantial Risk for: inability to function, rapid decompensation and med/psych decompensation
[2021-05-28 18:00] VITALS: BP 127/60; PULSE 82; RESP 19; TEMP 37.2; O2SAT 99
[2021-05-28] MEDS: Milk of Magnesia 30 ML ORAL.SUSP PO (18:43)
[2021-05-28] MEDS: Melatonin 3 MG TABLET 9 MG PO (21:31)
[2021-05-28] MEDS: HaloperidoL 5 MG TABLET 7.5 MG PO (21:33)
[2021-05-28] MEDS: OLANZapine 2.5 MG TABLET PO (21:36)
[2021-05-29] MEDS: hydrOXYzine HCL 25 MG TABLET PO (02:24)
[2021-05-29 07:30] VITALS: BP 127/61; PULSE 92; RESP 17; TEMP 37.1; O2SAT 98
[2021-05-29] MEDS: Cholecalciferol (Vitamin D3) 25 MCG TABLET 50 MCG PO (09:18)
[2021-05-29] MEDS: traZODone HCL 25 MG HALFTAB PO (09:18)
[2021-05-29] MEDS: Aspirin Enteric Coated 81 MG TABLET.DR PO (09:18)
[2021-05-29] MEDS: Divalproex Sodium ER 500 MG TAB.ER.24H 1500 MG PO (09:18)
[2021-05-29] MEDS: Folic Acid 1 MG TABLET PO (09:18)
[2021-05-29] MEDS: Cyanocobalamin (Vitamin B-12) 1,000 MCG TABLET 1000 MCG PO (09:19)
[2021-05-29] MEDS: Benztropine Mesylate 1 MG TABLET PO ×2 (09:19→20:14)
[2021-05-29] MEDS: Ammonium Lactate 12 % Lotion 226 GM BOTTLE 1 APPL TOPICAL ×2 (09:21→15:53)
[2021-05-29 09:54] VITALS: BMI 27.3
--- NOTE | 2021-05-29 13:49 | HO.PSYCHPN ---
Subjective Subjective Date of Service: 05/29/21 Reason For Visit: schizoaffective disorder Subjective Notes: Conditional Voluntary Interim History: The nursing staff reported that he slept poorly last night andhe was provoked by a peer but he was assertive. On [place], he reported feeling better, ready for discharge tomorrow. Mental Status Exam Mental Status Exam Patient Appearance: Well Grooomed Patient Orientation: Person, Place and Situation Level of Consciousness: Awake Patient Behavior: Appropriate Mood Description: Withdrawn Affect Description: Calm Patient Cognition Impaired: No Ability to Follow Directions: Good Speech Pattern: Clear Memory Description: Intact Hallucinations: None Delusions: Not Present Thought Process: Linear Thought Content: positive for Poverty of Content and positive for Preoccupation Judgement: Fair Diagnostics Vital Signs (24Hr): Vital Signs - 24 hr 05/28/21 18:00 05/29/21 07:30 Temperature 99 F 98.7 F Pulse Rate 82 92 Respiratory Rate 19 17 Blood Pressure 127/60 127/61 Pulse Oximetry 99 98 BMI result Body Mass Index 27.3 Medications Medications Current Medications Acetaminophen (Acetaminophen 325 Mg Tablet) 650 mg PO Q6H PRN PRN Reason: Headache/Pain Mild Scale (1-3) Al Hydroxide/Mg Hydroxide (Magnesium Hydrox/Alum Hydrox 30 Ml Oral.Susp) 30 ml PO Q6H PRN PRN Reason: Heartburn/Nausea Albuterol Sulfate (Albuterol Sulfate 90 Mcg 8 Gm Inhaler) 2 puff INHALE Q6H PRN PRN Reason: breathing Aspirin (Aspirin Enteric Coated 81 Mg Tablet.) 81 mg PO DAILY [facility] Last Admin: 05/29/21 09:18 Dose: 81 mg Documented by: Benztropine Mesylate (Benztropine Mesylate 1 Mg Tablet) 1 mg PO BID [facility] Last Admin: 05/29/21 09:19 Dose: 1 mg Documented by: Cyanocobalamin (Cyanocobalamin (Vitamin B-12) 1,000 Mcg Tablet) 1,000 mcg PO DAILY [facility] Last Admin: 05/29/21 09:19 Dose: 1,000 mcg Documented by: Divalproex Sodium (Divalproex Sodium Er 500 Mg Tab.Er.24h) 1,500 mg PO DAILY [facility] Last Admin: 05/29/21 09:18 Dose: 1,500 mg Documented by: Folic Acid (Folic Acid 1 Mg Tablet) 1 mg PO DAILY [facility] Last Admin: 05/29/21 09:18 Dose: 1 mg Documented by: Haloperidol (Haloperidol 5 Mg Tablet) 7.5 mg PO BEDTIME [facility] Last Admin: 05/28/21 21:33 Dose: 7.5 mg Documented by: Hydroxyzine HCl (Hydroxyzine Hcl 25 Mg Tablet) 25 mg PO DAILY PRN PRN Reason: Anxiety Last Admin: 05/29/21 02:24 Dose: 25 mg Documented by: Lactic Acid (Ammonium Lactate 12 % Lotion 226 Gm Bottle) 1 appl TOPICAL BID [facility] Last Admin: 05/29/21 09:21 Dose: 1 appl Documented by: Magnesium Hydroxide (Milk Of Magnesia 30 Ml Oral.Susp) 30 ml PO DAILY PRN PRN Reason: Constipation Last Admin: 05/28/21 18:43 Dose: 30 ml Documented by: Melatonin (Melatonin 3 Mg Tablet) 9 mg PO BEDTIME [facility] Last Admin: 05/28/21 21:31 Dose: 9 mg Documented by: Olanzapine (Olanzapine 2.5 Mg Tablet) 2.5 mg PO BEDTIME [facility] Last Admin: 05/28/21 21:36 Dose: 2.5 mg Documented by: Trazodone HCl (Trazodone Hcl 25 Mg Halftab) 25 mg PO DAILY [facility] Last Admin: 05/29/21 09:18 Dose: 25 mg Documented by: Vitamin D (Cholecalciferol (Vitamin D3) 25 Mcg Tablet) 50 mcg PO DAILY [facility] Last Admin: 05/29/21 09:18 Dose: 50 mcg Documented by: Allergies Allergies Allergy/AdvReac Type Severity Reaction Status Date / Time No Known Allergies Allergy Verified 05/17/20 08:28 Assessment & Plan Assessment & Plan (1) Schizophrenia: Status: Acute Code(s): F20.9 - Schizophrenia, unspecified Plan 71-year-old man admitted to geriatric psych for behavior Health. It does not appear that he has any acute or chronic medical problems other than mental health. Plan: Keep [facility]ol. [facility] next next Haldol dec is every 21 days, next shot on 06/06 Keep Zyprexa up to 2.5 mg po qhs Discharge for Wednesday possibly I spent minutes with the patient and/or on the patient floor today, greater than?50% of which was spent counseling/coordinating care. Reason for contiued inpatient stay Substantial Risk for: inability to function, rapid decompensation and med/psych decompensation
[2021-05-29 19:02] VITALS: BP 122/60; PULSE 80; RESP 16; TEMP 35.9; O2SAT 100
[2021-05-29] MEDS: HaloperidoL 5 MG TABLET 7.5 MG PO (20:14)
[2021-05-29] MEDS: OLANZapine 2.5 MG TABLET PO (20:15)
[2021-05-29] MEDS: Melatonin 3 MG TABLET 9 MG PO (20:15)
[2021-05-30] MEDS: hydrOXYzine HCL 25 MG TABLET PO (02:14)
[2021-05-30] MEDS: Aspirin Enteric Coated 81 MG TABLET.DR PO (08:27)
[2021-05-30] MEDS: Benztropine Mesylate 1 MG TABLET PO (08:27)
[2021-05-30] MEDS: Cholecalciferol (Vitamin D3) 25 MCG TABLET 50 MCG PO (08:27)
[2021-05-30] MEDS: Cyanocobalamin (Vitamin B-12) 1,000 MCG TABLET 1000 MCG PO (08:27)
[2021-05-30] MEDS: traZODone HCL 25 MG HALFTAB PO (08:27)
[2021-05-30] MEDS: Folic Acid 1 MG TABLET PO (08:27)
[2021-05-30] MEDS: Divalproex Sodium ER 500 MG TAB.ER.24H 1500 MG PO (08:27)
[2021-05-30] MEDS: Ammonium Lactate 12 % Lotion 226 GM BOTTLE 1 APPL TOPICAL (08:28)
--- NOTE | 2021-05-30 09:32 | PM.PSYDC ---
DS: Providers Provider Date of Service: 05/30/21 Date of admission: 05/23/21 20:50 Date of discharge: 05/30/21 Primary care physician: Jennifer Olivo MD Consults: 05/23/21 21:33 Consult to Hospitalist Routine Consulting Provider: Hospitalist Reason For Exam: New Consult from [facility] Attending physician on discharge: Jone Waldron DS: Diagnosis Discharge Diagnosis (1) Schizophrenia: Status: Acute DS: Medications Discharge Medications Home Medications: Home Medications Medication Instructions Recorded Confirmed albuterol sulfate 90 mcg/actuation 2 puff INHALATION Q6H PRN 05/17/20 05/23/21 aerosol inhaler ammonium lactate 12 % lotion 1 appl TOPICAL BID 05/17/20 05/23/21 aspirin 81 mg tablet,delayed 81 mg PO DAILY 05/17/20 05/23/21 release (Enteric Coated Aspirin) benztropine 1 mg tablet 1 mg PO BID 05/17/20 05/23/21 divalproex 500 mg tablet,delayed 500 mg PO TID 05/17/20 05/23/21 release haloperidol 5 mg tablet 5 mg PO BEDTIME 05/17/20 05/23/21 trazodone 50 mg tablet 25 mg PO DAILY 05/17/20 05/23/21 Mental Status Exam Mental Status Exam Patient Appearance: Well Grooomed Patient Orientation: Person Level of Consciousness: Awake Patient Behavior: Cooperative Mood Description: Calm Affect Description: Constricted Ability to Follow Directions: Good Speech Pattern: Clear Hallucinations: None Delusions: Not Present Thought Process: Linear Thought Content: positive for Circumstantial Judgement: Fair Data Data Completed and Pending Completed studies during hospitalization [Text1]: 05/24/21 05/24/21 05/24/21 07:15 07:15 07:15 Estimat Average Glucose 97 Hemoglobin A1c % 5.0 Magnesium 2.1 Triglycerides 93 Cholesterol 181 LDL Cholesterol, Calc 128 HDL Cholesterol 35 Vitamin B12 967 H Folate 15.9 TSH 0.99 Free T4 1.09 Valproic Acid 05/25/21 07:40 Estimat Average Glucose Hemoglobin A1c % Magnesium Triglycerides Cholesterol LDL Cholesterol, Calc HDL Cholesterol Vitamin B12 Folate TSH Free T4 Valproic Acid 51.8 DS: Summary Hospital Course Hospital Course: The patient was initially admitted for exacerbation of psychotic symptoms in the context of a low doses of his Haldol Decanoate. Please see HPI on the admission at her for details. The patient [facility] and he has been is stable Haldol Decanoate and other medications. On admission, the patient was psychotic but easily redirectable and pleasant. His main complaint was poor sleep. The patient has been on Haldol that for several years and he received his last Haldol Decanoate the day before of the admission to this unit. He did not have EPS or tardive dyskinesia at this moment, we discussed risks, benefits, side-effects and alternatives and he agreed to start a low-dose of Zyprexa as augmentation. He was over sedated with 5 mg at bedtime so we lowered to 2.5. We did a few changes in his medications, we increased his Haldol p.o. from 5-7.5 and we change his Depakote to 500 t.i.d. to Depakote extended release 1500 mg at night with good response. The patient was able to participate in groups, he was future oriented, he was pleasant and cooperative. The group social worker also contact the [facility] and the other [facility] that he has and aftercare was coordinated. Since there were no safety concerns discharge planning was started. Time spent discussing smoking cessation with patient: 3 to 10 minutes Status at Discharge Cognitive/behavioral status at discharge: At baseline Functional status at discharge: independent ambulation Overall status at discharge: patient is back to baseline Time Spent with Patient Time attestation: Total time spent providing and/or coordinating discharge services: Time spent: Less than 30 minutes Discharge Plan Discharge Patient Disposition: Home, Self-Care Discharge Diagnosis: Schizophrenia Referrals: Felicity Roberson RN [facility] [Other] - 06/06/21 10:00 am (Your next Haldol IM is scheduled for 06/06/21 at 10:00am with Felicity Roberson at the [facility]) Dr Sharonda Triana, PhD [Other] - 06/18/21 1:00 pm (Your next therapist appointment with Dr Triana is 06/18/21 at 1:00pm. ) [facility] [Other] - 06/10/21 3:30 pm (Your next appointment with Hugo Bond at the [facility] is 06/10/21 at 3:30pm in clinic.) [facility] [Other] - 05/30/21 12:00 pm (Your scheduled appointment with the [facility] pharmacy to picker tender helper your prescriptions is 05/30/21 at 12pm. ) Jennifer Olivo MD [Primary Care Provider] - 06/05/21 1:00 pm (Your appointment with Dr Olivo for primary care is for 06/05/21 at 1:00pm. ) Discharge Medications: New haloperidol 5 mg Tablet 7.5 mg PO BEDTIME 30 Days Qty: 45 0RF cyanocobalamin (vitamin B-12) [Vitamin B-12] 1,000 mcg Tablet 1,000 mcg PO DAILY 30 Days Qty: 30 0RF melatonin 3 mg Tablet 9 mg PO BEDTIME 30 Days Qty: 90 0RF olanzapine 2.5 mg Tablet 2.5 mg PO BEDTIME 30 Days Qty: 30 0RF divalproex 500 mg Tablet Extended Release 24 Hr 1,500 mg PO DAILY 30 Days Qty: 90 0RF folic acid 1 mg Tablet 1 mg PO DAILY 30 Days Qty: 30 0RF cholecalciferol (vitamin D3) 25 mcg (1,000 unit) Tablet 50 mcg PO DAILY 30 Days Qty: 60 0RF Continued ammonium lactate 12 % lotion 1 appl topical BID 30 Days Qty: 1 0RF trazodone 50 mg tablet 25 mg PO DAILY 30 Days Qty: 15 0RF aspirin [Enteric Coated Aspirin] 81 mg tablet,delayed release (DR/EC) 81 mg PO DAILY 30 Days Qty: 30 0RF benztropine 1 mg tablet 1 mg PO BID 30 Days Qty: 60 0RF albuterol sulfate 90 mcg/actuation HFA aerosol inhaler 2 puff inhalation Q6H PRN (Reason: breathing ) 30 Days Qty: 1 0RF Discontinued haloperidol 5 mg tablet 5 mg PO BEDTIME 0RF divalproex 500 mg tablet,delayed release (DR/EC) 500 mg PO TID 0RF Discharge Orders: Discharge Order (Routine); Ordered 05/30/21 Ordered By: Jone Waldron Diet: advance to usual diet Activity on Discharge: As tolerated Stand Alone Forms: Patient Portal Discharge page, Community Support Care Plan Goals: Care plan goals achieved in this admission Health Concerns: Continue treatment as an outpatient by primary care physician Plan of Treatment: Continue treatment at the [facility] for medication management and psychotherapy Assessment: The patient is an elderly male with a long history of schizophrenia, [facility] for an exacerbation of psychotic symptoms in the context of low dose of Haldol Decanoate at the end of the month. The patient was admitted for stabilization, we increased his Haldol p.o. slightly up to 7.5 p.o. q.h.s., change his Depakote to extended release once a day at night and add olanzapine 2.5 mg as and Gentiva with for improvement. The patient is safe, at baseline ready to go back to the community with [facility] provided by the [facility]
--- NOTE | 2021-05-30 11:21 | PC.NURSE ---
Patient was ready and aware for discharge . Paperwork reviewed with patient. Next doses medications and follow up appointment was explained to patient .Patient verbalized understanding . Patient was pleasant and cooperative . Patient was accompanied with belongings to the front of the building per hospital policy.
== END 2021-05-30 10:54 | disposition home or self-care (01) | DRG 885 ==
PROVIDERS: Psychiatry & Neurology Psychiatry; Registered Nurse; Admitting Provider Psychiatry & Neurology Psychiatry; PCP Family Medicine; Visit Provider Psychiatry & Neurology Psychiatry
DX: F20.9 Schizophrenia, unspecified (principal); R45.851 Suicidal ideations; F17.210 Nicotine dependence, cigarettes, uncomplicated; Z71.6 Tobacco abuse counseling; Z79.82 Long term (current) use of aspirin; Z79.899 Other long term (current) drug therapy
CPT/HCPCS: 36415; 80061; 80164; 82607; 82746; 83036; 83735; 84439; 84443